=== PATIENT | female | born 1950 | race American Indian/Alaskan Native ===

== ENCOUNTER 2017-05-26 07:21 | Outpatient (CLI) | payer MEDICARE ==
--- NOTE | 2017-05-26 09:06 | Mammography Report ---
BILATERAL MAMMOGRAM: FINDINGS: The breasts are almost entirely fat (<25% glandular). No mass, distortion, suspicious calcification, or skin change is seen. No significant change compared to prior exam in June 2015. CAD was utilized. IMPRESSION: Negative mammogram. There is no mammographic evidence of malignancy. RECOMMENDATION: Follow-up per ACS guidelines. BI-RADS CATEGORY: 1 = Negative ACR BI-RADS MAMMOGRAPHIC CODES: 0 = Needs additional imaging evaluation; 1 = Negative; 2 = Benign; 3 = Probably benign; 4 = Suspicious; 5 = Malignant; 6 = Known biopsy-proven malignancy COMMENT: 1. Dense breast tissue, i.e., adenosis, fibrocystic changes, etc., may obscure an underlying neoplasm. 2. Approximately 10% of cancers are not detected with mammography. 3. A negative mammography report should not delay biopsy if a clinically suspicious mass is present. COMMENT: Patient follow-up letters are generated in [employer].
== END 2017-05-26 07:22 | disposition home or self-care (01) ==
LOC: MAMMO 07:21
DX: Z12.31 Encounter for screening mammogram for malignant neoplasm of breast (principal)
CPT/HCPCS: 77067; G0202

== ENCOUNTER 2017-08-11 08:11 | Outpatient (CLI) | payer MEDICARE ==
--- NOTE | 2017-08-11 19:59 | XRay Report ---
FINAL REPORT PROCEDURE: XR KNEE BILAT 4+V TECHNIQUE: Bilateral knee radiographs, 4 or more views, including AP, lateral, sunrise and oblique views. HISTORY: Bilateral knee pain. COMPARISON: No prior studies are available for comparison. FINDINGS: Right Fracture (s) and/or Dislocation(s): None . Alignment: Slight genu valgum. Slight lateral translation of the tibia in relation to the distal femur. Joint space(s): Moderate lateral and patellofemoral compartment narrowing and osteophytes. Mild to moderate medial and patellofemoral compartment narrowing and osteophytes. Tibial eminence spurring. Small joint effusion. Soft tissues: Normal. Bone mineralization: Normal. Foreign bodies: None. Left Fracture (s) and/or Dislocation(s): None . Alignment: Normal. Joint space(s): Mild medial and patellofemoral compartment narrowing and osteophytes. Tibial eminence spurring. Soft tissues: Normal. Bone mineralization: Normal. Foreign bodies: None. 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 Small right joint effusion.
== END 2017-08-11 08:12 | disposition home or self-care (01) ==
LOC: SPVIMAG 08:11
PROVIDERS: ATTEND Orthopaedic Surgery Sports Medicine
DX: M17.0 Bilateral primary osteoarthritis of knee (principal)

== ENCOUNTER 2019-06-27 07:57 | Outpatient (CLI) | payer OTHER, MEDICARE ==
--- NOTE | 2019-06-27 16:27 | Mammography Report ---
DIGITAL SCREENING MAMMOGRAM WITH CAD, 06/27/2019 INDICATION: Routine screening mammography. TECHNIQUE: Digital bilateral 2D mammography was obtained in the craniocaudal and mediolateral obliq ue projections. This examination was interpreted with the benefit of Computer-Aided Detection analysi s. COMPARISON: 05/27/2018 FINDINGS: Breast Density: The breasts are almost entirely fatty. There is no evidence of dominant mass, suspicious calcifications or architectural distortion in eithe r breast. IMPRESSION: No mammographic evidence of malignancy. Follow up recommendation: Routine yearly BI-RADS Category 1: Negative. A "normal" or negative report should not discourage follow up or biopsy of a clinically significant f inding. A written summary of these findings will be mailed to the patient. The patient will be entered into a mammography reporting system which will generate a reminder letter for the patient's next appointmen t at the appropriate interval. The [employer] recommends yearly mammograms starting at age 40 and continuing as l theresa as a woman is in good health. Breast MRI is recommended for women with an approximate 20-25% or greater lifetime risk of breast cancer, including women with a strong family history of breast or ova adrian cancer or who have been treated for Hodgkin's disease. Signer Name: Lopez Brooks MD Signed: 06/27/2019 4:22 PM Workstation Name: [id number]
== END 2019-06-27 07:58 | disposition home or self-care (01) ==
LOC: MAMMO 07:57
PROVIDERS: ATTEND Family Medicine
DX: Z12.31 Encounter for screening mammogram for malignant neoplasm of breast (principal)
CPT/HCPCS: 77067